=== PATIENT | female | born 1965 | race Caucasian/White ===

== ENCOUNTER 2025-04-28 10:23 | Outpatient (RCR) | payer BC, SELFPAY ==
[2025-04-28 10:33] VITALS: BP 124/60
[2025-04-28] MEDS: EVENITY 105 MG SC ×2 (10:47→10:48)
== END 2025-04-29 11:54 | disposition home or self-care (01) ==
LOC: OID 10:23
PROVIDERS: ATTENDING PHYSICIAN Internal Medicine Endocrinology, Diabetes & Metabolism; FAMILY PHYSICIAN Family Medicine
DX: M81.0 Age-related osteoporosis without current pathological fracture (principal)
CPT/HCPCS: 96372; J3111

== ENCOUNTER 2025-05-31 11:30 | Outpatient (RCR) | payer BC, SELFPAY ==
[2025-05-31 11:30] VITALS: BP 99/57
[2025-05-31] MEDS: EVENITY 105 MG SC ×2 (11:50)
== END 2025-06-01 09:29 | disposition home or self-care (01) ==
LOC: OID 11:30
PROVIDERS: ATTENDING PHYSICIAN Internal Medicine Endocrinology, Diabetes & Metabolism; FAMILY PHYSICIAN Family Medicine
DX: M81.0 Age-related osteoporosis without current pathological fracture (principal)
CPT/HCPCS: 96372; J3111

== ENCOUNTER 2025-06-30 11:12 | Outpatient (RCR) | payer BC, SELFPAY ==
[2025-06-30 11:30] VITALS: BP 122/61
[2025-06-30] MEDS: EVENITY 105 MG SC ×2 (11:50)
== END 2025-07-01 09:14 | disposition home or self-care (01) ==
LOC: OID 11:12
PROVIDERS: ATTENDING PHYSICIAN Internal Medicine Endocrinology, Diabetes & Metabolism; FAMILY PHYSICIAN Family Medicine
DX: M81.0 Age-related osteoporosis without current pathological fracture (principal)
CPT/HCPCS: 96372; J3111